=== PATIENT | female | born 1945 ===

== ENCOUNTER 2017-11-29 05:55 | Day surgery (SDC) | payer OTHER | END 2017-11-29 12:56 | disposition home or self-care (01) | LOC: AMB-ENDOS 05:55 | DX: D12.0 Benign neoplasm of cecum (principal); K57.32 Diverticulitis of large intestine without perforation or abscess without bleeding; K63.5 Polyp of colon ==

== ENCOUNTER → 2018-02-01 15:24 | Outpatient (CLI) | payer OTHER ==
[~2018-02-01 15:24] MED LIST: AVAPRO150 MG PO; FLOVENT HFA10.6 GM IH; HYDROCHLOROTH12.5 M1 PO; SINGULAIR10 MG PO; SYMBICORT
== END | disposition home or self-care (01) ==
LOC: EKG 15:24
DX: I10 Essential (primary) hypertension (principal)

== ENCOUNTER 2019-04-05 08:30 | Day surgery (SDC) | payer OTHER | END 2019-04-05 13:40 | disposition home or self-care (01) | LOC: AMB-ENDOS 08:30 | DX: D12.8 Benign neoplasm of rectum (principal); K64.1 Second degree hemorrhoids; K57.30 Diverticulosis of large intestine without perforation or abscess without bleeding ==